=== PATIENT | male | born 1995 | race African-American/Black ===

== ENCOUNTER 2020-01-20 13:12 | Emergency (ER) | payer OTHER ==
[~2020-01-20] VITALS: Ht 170.2 cm; Wt 74.8 kg
[2020-01-20 13:18] VITALS: BP 137/96
[2020-01-20] MEDS ORDERED: IBUPROFEN 600 MG TABLET PO ONE ×2 (13:46→14:00)
--- NOTE | 2020-01-20 13:48 | NUR ---
Patient discharged in custody in stable condition. Written and verbal after care instructions given. Patient verbalizes understanding of instruction.
== END 2020-01-20 13:50 ==
LOC: ER 13:21
DX: S60.410A Abrasion of right index finger, initial encounter (principal); Y08.89XA Assault by other specified means, initial encounter; Y93.89 Activity, other specified; Y92.89 Other specified places as the place of occurrence of the external cause; Y99.8 Other external cause status